=== PATIENT | female | born 1955 | race Caucasian/White ===

== ENCOUNTER 2019-02-18 16:54 | Outpatient (REF) | payer BC, SELFPAY ==
[2019-02-18 22:39] LABS: Folate > 20.0 ng/mL (8.6-20.0); Vitamin B12 519 pg/mL (193-986)
== END 2019-02-18 17:14 ==
LOC: NCHCN 16:54
PROVIDERS: PCP Internal Medicine; Visit Provider Family Medicine
DX: D75.89 Other specified diseases of blood and blood-forming organs (principal); J20.9 Acute bronchitis, unspecified; Z87.891 Personal history of nicotine dependence; E53.8 Deficiency of other specified B group vitamins
CPT/HCPCS: 82607; 82746

== ENCOUNTER 2019-08-02 12:44 | Outpatient (REF) | payer BC, SELFPAY ==
[2019-08-02 20:24] LABS: ALT 33 U/L (14-59); AST 35 U/L (15-37); Alkaline Phosphatase 79 U/L (46-116); Anion Gap 9.5 mmol/L (3-11); BUN 15 mg/dL (7-18); Bilirubin, Total 0.7 mg/dL (0.2-1.0); CO2 29.5 mmol/L (21.0-32.0); CREATININE 0.76 mg/dL (0.55-1.02); Calcium 9.4 mg/dL (8.5-10.1); Chloride 102 mmol/L (98-107); Glucose 70 mg/dL (74-106); Potassium 4.6 mmol/L (3.5-5.1); Sodium 141 mmol/L (136-145); Total Protein 8.1 g/dL (6.4-8.2)
== END 2019-08-02 13:04 ==
LOC: NCHCN 12:44
PROVIDERS: PCP Internal Medicine; Visit Provider Internal Medicine
DX: R03.0 Elevated blood-pressure reading, without diagnosis of hypertension (principal)
CPT/HCPCS: 80053

== ENCOUNTER 2020-12-24 21:17 | Outpatient (REF) | payer MEDICARE, BC, SELFPAY ==
[2020-12-24 21:46] LABS: Anion Gap 7.1 mmol/L (3-11); BUN 20 mg/dL (7-18); CO2 27.9 mmol/L (21.0-32.0); CREATININE 0.8 mg/dL (0.55-1.02); Calcium 8.8 mg/dL (8.5-10.1); Calculated LDL 135 mg/dL (<100); Chloride 106 mmol/L (98-107); Cholesterol 233 mg/dL (<200); Glucose 98 mg/dL (74-106); HDL Cholesterol 77 mg/dL (40-60); Potassium 4.7 mmol/L (3.5-5.1); Sodium 141 mmol/L (136-145); Triglyceride 109 mg/dL (<150)
== END 2020-12-24 21:18 | disposition home or self-care (01) ==
LOC: NCHCN 21:17
PROVIDERS: PCP Internal Medicine; Visit Provider Internal Medicine
DX: Z13.220 Encounter for screening for lipoid disorders (principal); I10 Essential (primary) hypertension
CPT/HCPCS: 80048; 80061

== ENCOUNTER 2021-12-28 16:48 | Outpatient (REF) | payer MEDICARE, SELFPAY ==
[2021-12-28 20:58] LABS: BUN 16 mg/dL (7-18); CREATININE 0.8 mg/dL (0.55-1.02); Calculated LDL 130 mg/dL (<100); Chloride 105 mmol/L (98-107); Cholesterol 226 mg/dL (<200); Estimated GFR 80.71 (mL/min/1.73m2); Glucose 100 mg/dL (74-106); HDL Cholesterol 85 mg/dL (40-60); Potassium 4.1 mmol/L (3.5-5.1); Sodium 141 mmol/L (136-145); Triglyceride 55 mg/dL (<150)
== END 2021-12-28 16:49 | disposition home or self-care (01) ==
LOC: NCHCN 16:48
PROVIDERS: PCP Internal Medicine; Visit Provider Nurse Practitioner Family
DX: I10 Essential (primary) hypertension (principal)
CPT/HCPCS: 80048; 80061

== ENCOUNTER 2022-12-22 07:51 | Outpatient (REF) | payer MEDICARE, SELFPAY ==
--- OUTSIDE RECORDS SUMMARY | 2022-12-22 07:54 | XMS_ITS | CCD ---
Author Name Unknown Address [address] [place] [address] [phone] Organization Unknown Address [address] [place] [address] [phone] Care Team Providers Care Regional Account Director Name Role Phone BELLA DOVE Attending Physician [phone] Vital Signs Unknown or Not Available. Allergies Allergy Code Allergy Type Reaction Status No Known Allergies 0 No known allergies Active Procedures Unknown or Not Available. History of Immunizations Unknown or Not Available. Problems Unknown or Not Available. Results Unknown or Not Available. Active Medications Unknown or Not Available. Medications Administered During Visit Unknown or Not Available. Encounters Encounter Diagnosis Diagnosis Code Start Date Canceled operative procedure [id number] 06/2022 Social History Smoking Status Code Start Date End Date Former smoker [id number] 1970 05/01/1994 Patient Decision Aids Unknown or Not Available. Discharge Instructions You were admitted to [facility] on 08/01/2022 16:15 with a principal diagnosis of Procedure and treatment not carried out, unspecified reason You were discharged from [facility] on 08/01/2022 16:15 Should you have any questions prior to discharge, please contact a member of your healthcare team. If you have left the hospital and have any questions, please contact your primary care physician. Chief Complaint and Reason For Visit Unknown or Not Available. Function Status Unknown or Not Available. Plan of Care Unknown or Not Available. Referral/Transition of Care Unknown or Not Available.
--- OUTSIDE RECORDS SUMMARY | 2022-12-22 07:54 | XMS_ITS | CCD ---
Author Name Unknown Address [address] [place] [address] [phone] Organization Unknown Address [address] [place] [address] [phone] Care Team Providers Care Lease Picker Name Role Phone HUGH PATE Attending Physician [phone] Vital Signs Unknown or Not Available. Allergies [...] Encounters Encounter Diagnosis Diagnosis Code Start Date Abnormal findings on diagnos tic imaging of heart and coronary circulation R931 05/26/2022 Social History Smoking Status Code Start Date End Date Former smoker [id number] 1970 05/01/1994 Patient Decision Aids Unknown or Not Available. Discharge Instructions You were admitted to [facility] on 05/26/2022 00:00 with a principal diagnosis of Abnormal findings on diagnostic imaging of heart and coronary circulation You were discharged from [facility] on 05/26/2022 00:00 Should you have any questions prior to [...]
--- OUTSIDE RECORDS SUMMARY | 2022-12-22 07:54 | XMS_ITS | CCD ---
Author Name Unknown Address [address] [place] [address] [phone] Organization Unknown Address [address] [place] [address] [id number] Care Team Providers Care Cinder Block Mason Name Role Phone BELLA DOVE Attending Physician [phone] Vital Signs Unknown or Not Available. Allergies [...] Encounters Encounter Diagnosis Diagnosis Code Start Date Palpitations R002 09/08/2022 Social History Smoking Status Code Start Date End Date Former smoker [id number] 1971 05/01/1994 Patient Decision Aids Unknown or Not Available. Discharge Instructions You were admitted to [facility] on 09/08/2022 11:43 with a principal diagnosis of Palpitations You were discharged from [facility] on 09/08/2022 11:43 Should you have any questions prior to [...]
--- OUTSIDE RECORDS SUMMARY | 2022-12-22 07:54 | XMS_ITS | CCD ---
Author Name Unknown Address [address] [place] [address] [id number] Organization Unknown Address [address] [place] [address] [phone] Care Team Providers Care African History Professor Name Role Phone DELIA KRAMER Attending Physician [phone] Vital Signs Unknown or Not Available. Allergies [...] Encounters Encounter Diagnosis Diagnosis Code Start Date Age-related osteoporosis wit hout current pathological fracture M810 01/06/2022 Social History Smoking Status Code Start Date End Date Former smoker [id number] 1971 05/01/1994 Patient Decision Aids Unknown or Not Available. Discharge Instructions You were admitted to [facility] on 01/06/2022 14:37 with a principal diagnosis of Age-related osteoporosis without current pathological fracture You were discharged from [facility] on 01/06/2022 14:37 Should you have any questions prior to discharge, please contact a member of your healthcare team. If you have left the hospital and have any questions, please contact your primary care physician. Chief Complaint and Reason For Visit Chief Complaint Date of Onset POSTMENOPAUSAL Function Status Unknown or Not Available. Plan of Care Unknown or Not Available. Referral/Transition of Care Unknown or Not Available.
--- OUTSIDE RECORDS SUMMARY | 2022-12-22 07:55 | XMS_ITS | CCD ---
Author Name Unknown Address [address] [place] [address] [phone] Organization Unknown Address [address] [place] [address] [phone] Care Team Providers Care Director Weights And Measures Name Role Phone BELLA DOVE Attending Physician [phone] Vital Signs Unknown or Not Available. Allergies [...] Encounters Encounter Diagnosis Diagnosis Code Start Date Heart murmur [id number] 06/01/2022 Social History Smoking Status Code Start Date End Date Former smoker [id number] 1970 05/01/1994 Patient Decision Aids Unknown or Not Available. Discharge Instructions You were admitted to [facility] on 06/01/2022 12:52 with a principal diagnosis of Cardiac murmur, unspecified You were discharged from [facility] on 06/01/2022 12:52 Should you have any questions prior to [...]
[2022-12-22 15:48] LABS: Abs Immature Grans 0.01 10^3/uL (0.0-0.06); Absolute Basophil Count 0.06 10^3/uL (0.0-0.2); Absolute Eosinophil Count 0.14 10^3/uL (0.0-0.7); Absolute Monocyte Count 0.57 10^3/uL (0.1-0.8); Absolute Neutrophil Count 2.84 10^3/uL (1.2-6.7); Basophils % 1.2; Eosinophils % 2.9; HCT 37.8 % (36.0-46.0); HGB 12.6 g/dL (11.2-15.7); Immature Grans % 0.2; Lymphocytes % 24.9; MCH 31.9 pg (27.0-33.0); MCHC 33.3 % (32.0-36.0); MCV 96 fL (80-95); MPV 10.5 fL (8.0-11.0); Monocytes % 11.8; Platelet Count 298 10^3/uL (130-400); RBC 3.95 10^6/uL (3.93-5.22); RDW 12.9 % (11.7-14.6); RDW-SD 45.5 fL; WBC 4.82 10^3/uL (4.4-10.8)
[2022-12-22 16:41] LABS: BUN 20 mg/dL (7-18); CREATININE 0.7 mg/dL (0.55-1.02); Calcium 8.8 mg/dL (8.5-10.1); Chloride 105 mmol/L (98-107); Estimated GFR 94.15 (mL/min/1.73m2); Glucose 90 mg/dL (74-106); Potassium 4.1 mmol/L (3.5-5.1); Sodium 139 mmol/L (136-145); TSH (W/Ref FT4) 2.75 uIU/mL (0.36-3.74)
== END 2022-12-22 07:52 | disposition home or self-care (01) ==
LOC: NCHCN 07:51
PROVIDERS: PCP Internal Medicine; Visit Provider Family Medicine
DX: I10 Essential (primary) hypertension (principal); R00.2 Palpitations; R53.83 Other fatigue
CPT/HCPCS: 80048; 84443; 85025

== ENCOUNTER 2023-01-06 12:10 | Outpatient (REF) | payer MEDICARE, SELFPAY | END 2023-01-06 12:11 | disposition home or self-care (01) | LOC: NCHCN 12:10 | PROVIDERS: PCP Internal Medicine; Visit Provider Internal Medicine | DX: M81.0 Age-related osteoporosis without current pathological fracture (principal) | CPT/HCPCS: 82306 ==

== ENCOUNTER 2024-01-02 09:22 | Outpatient (REF) | payer MEDICARE, SELFPAY ==
[2024-01-02 14:35] LABS: ALT 23 U/L (14-59); AST 27 U/L (15-37); Albumin 3.4 g/dL (3.4-5.0); Alkaline Phosphatase 53 U/L (46-116); Anion Gap 7.6 mmol/L (3-11); BUN 18 mg/dL (7-18); Bilirubin, Total 0.93 mg/dL (0.2-1.0); CO2 28.4 mmol/L (21.0-32.0); CREATININE 0.8 mg/dL (0.55-1.02); Calcium 8.8 mg/dL (8.5-10.1); Calculated LDL 140 mg/dL (<100); Chloride 105 mmol/L (98-107); Cholesterol 240 mg/dL (<200); Estimated GFR 79.71 (mL/min/1.73m2); Glucose 88 mg/dL (74-106); HDL Cholesterol 86 mg/dL (40-60); Sodium 141 mmol/L (136-145); Total Protein 7.1 g/dL (6.4-8.2); Triglyceride 72 mg/dL (<150)
== END 2024-01-02 09:23 | disposition home or self-care (01) ==
LOC: NCHCN 09:22
PROVIDERS: PCP Internal Medicine; Visit Provider Internal Medicine
DX: I10 Essential (primary) hypertension (principal)
CPT/HCPCS: 80053; 80061

== ENCOUNTER 2024-10-28 18:08 | Outpatient (REF) | payer MEDICARE, SELFPAY ==
[2024-10-30 14:59] LABS: Bacterial Vaginosis (BV) Negative (Negative); Candida glabrata Negative (Negative); Candida species group Negative (Negative); Trichomonas vaginalis Negative (Negative)
== END 2024-10-28 18:09 | disposition home or self-care (01) ==
LOC: NCHCN 18:08
PROVIDERS: PCP Internal Medicine; Visit Provider Nurse Practitioner Family
DX: R39.9 Unspecified symptoms and signs involving the genitourinary system (principal); N95.2 Postmenopausal atrophic vaginitis; R82.89 Other abnormal findings on cytological and histological examination of urine
CPT/HCPCS: 81513; 87481; 87491; 87591; 87661; 87086

== ENCOUNTER 2025-01-03 13:11 | Outpatient (REF) | payer MEDICARE, SELFPAY ==
[2025-01-03 14:42] LABS: HCT 39.9 % (36.0-46.0); HGB 13.5 g/dL (11.2-15.7); MCH 32.1 pg (27.0-33.0); MCHC 33.8 % (32.0-36.0); MCV 95 fL (80-95); MPV 10.7 fL (8.0-11.0); Platelet Count 291 10^3/uL (130-400); RBC 4.21 10^6/uL (3.93-5.22); RDW 12.6 % (11.7-14.6); RDW-SD 43.6 fL; WBC 4.42 10^3/uL (4.4-10.8)
[2025-01-03 14:54] LABS: ALT 20 U/L (14-59); AST 27 U/L (15-37); Albumin 3.4 g/dL (3.4-5.0); Alkaline Phosphatase 52 U/L (46-116); Anion Gap 6.5 mmol/L (3-11); BUN 16 mg/dL (7-18); Bilirubin, Total 1.2 mg/dL (0.2-1.0); CO2 27.5 mmol/L (21.0-32.0); Calcium 8.9 mg/dL (8.5-10.1); Calculated LDL 160 mg/dL (<100); Chloride 105 mmol/L (98-107); Cholesterol 263 mg/dL (<200); Estimated GFR 96.50 (mL/min/1.73m2); Glucose 79 mg/dL (74-106); HDL Cholesterol 92 mg/dL (>or=50); Potassium 4.1 mmol/L (3.5-5.1); Sodium 139 mmol/L (136-145); Total Protein 7.2 g/dL (6.4-8.2); Triglyceride 55 mg/dL (<150)
== END 2025-01-03 13:12 | disposition home or self-care (01) ==
LOC: NCHCN 13:11
PROVIDERS: PCP Internal Medicine; Visit Provider Internal Medicine
DX: E78.5 Hyperlipidemia, unspecified (principal); D75.89 Other specified diseases of blood and blood-forming organs; Z00.00 Encounter for general adult medical examination without abnormal findings
CPT/HCPCS: 80053; 80061; 85027